=== PATIENT | female | born 1990 | race Caucasian/White ===

== ENCOUNTER 2018-01-09 07:29 | Emergency (ER) | payer SELFPAY ==
[2018-01-09 07:43] VITALS: BP 135/73
[2018-01-09] MEDS ORDERED: LORazepam TAB(*) 1 MG PO ONE (07:55)
--- NOTE | 2018-01-09 07:55 | UC ---
Back Pain HPI - HPI Summary HPI Summary: 27 yo WF h/o LBP, sciatica p/w severe intractable LBP, with radiculopathy associated with back spasms traveling up and down the back. Pain so excruciating she was unable to sleep or function - History of Current Complaint Chief Complaint: UCBackPain Stated Complaint: back and shoulder pain Time Seen by Provider: 01/09/18 07:49 Hx Obtained From: Patient Hx Last Menstrual Period: Onset/Duration: Sudden Onset Timing: Lasting Hours Severity Initially: Severe Severity Currently: Severe Pain Intensity: 9 Character: Sharp, Aching, Spasmodic Aggravating Factor(s): Movement - Allergies/Home Medications Allergies/Adverse Reactions: Allergies Allergy/AdvReac Type Severity Reaction Status Date / Time codeine Allergy Severe Vomiting Verified 01/09/18 07:49 NSAIDS (Non-Steroidal Allergy Severe Anaphylatic Verified 01/09/18 07:50 Anti-Inflamma Shock hydromorphone Allergy Mild Vomiting Verified 01/09/18 07:50 Home Medications: Home Medications Acetaminophen TAB* [Tylenol TAB*] 500 mg PO 01/09/18 [History] PMH/Surg Hx/FS Hx/Imm Hx - Additional Past Medical History Additional PMH: chronic LBP and sciatica Previously Healthy: Yes - Surgical History Surgical History: Yes Surgery Procedure, Year, and Place: GALL BLADDER - Social History Alcohol Use: Weekly Alcohol Amount: 2 DRINKS/WEEK Substance Use Type: Marijuana Smoking Status (MU): Heavy Every Day Tobacco Smoker Type: Cigarettes Amount Used/How Often: 1/2 ppd Length of Time of Smoking/Using Tobacco: 7 YEARS Have You Smoked in the Last Year: Yes Household Exposure Type: Cigarettes Review of Systems Constitutional: Negative Skin: Negative Eyes: Negative ENT: Negative Respiratory: Negative Cardiovascular: Negative Gastrointestinal: Negative Genitourinary: Negative Motor: Negative Neurovascular: Other - B/L SCIATICA Musculoskeletal: Other: - LBP and sciatica- intractable pains Neurological: Negative Psychological: Negative All Other Systems Reviewed And Are Negative: Yes Physical Exam Triage Information Reviewed: Yes Vital Signs: Initial Vital Signs Temp 36.4 C 01/09/18 07:37 Pulse 88 01/09/18 07:37 Resp 16 01/09/18 07:37 BP 135/73 01/09/18 07:37 Pulse Ox 100 01/09/18 07:37 Eye Exam: Normal ENT Exam: Normal Dental Exam: Normal Neck exam: Normal Neck: Positive: 1 Respiratory Exam: Normal Cardiovascular Exam: Normal Abdominal Exam: Normal Musculoskeletal Exam: Normal Musculoskeletal: Positive: Strength Limited @, ROM Limited @, Other: - radiculpathy down b/l LE, lumbar paraspinal tenderness associated with muscle spasm up to in between b/l scapula Neurological Exam: Normal Psychological: Positive: Consolable, Other: - tearful and anxious Skin Exam: Normal Back Pain Course/Dx - Course Course Of Treatment: anxiety improved with 1mg atvian PO, pt has intractable backpain, with severe back spasms. pt initially declined ambulance service and opted to call a friend for a ride to hospital but unsuccessful, hence ambulance called and pt transerred to ER. Discussed and informed of transfer to ED to Dr Neri - Differential Dx/Diagnosis Provider Diagnoses: intractable back pain. sciatica Discharge - Discharge Plan Condition: Stable Disposition: TRANS HIGHER LVL OF CARE FAC Referrals: No Primary Care Phys,NOPCP [Primary Care Provider] -
== END 2018-01-09 08:44 | disposition short-term general hospital (02) ==
LOC: UCEAST 07:29
DX: M54.40 Lumbago with sciatica, unspecified side (principal); F17.210 Nicotine dependence, cigarettes, uncomplicated; Z88.6 Allergy status to analgesic agent; Z88.5 Allergy status to narcotic agent
CPT/HCPCS: 99213; A9270-GY; G0463

== ENCOUNTER 2018-01-09 09:00 | Emergency (ER) | payer SELFPAY ==
--- NOTE | 2018-01-09 10:02 | ED ---
Back Pain - HPI Summary HPI Summary: 27 yo female presents to ED BIBA with h/o low back pain/sciatica today with severe intractable back pain, with radiculopathy associated with back spasms traveling up and down the back. Also sharp "burning" pain in back of both legs. Pain so excruciating she was unable to sleep or function. Sent over from for pain management. Had ativan at and seems to have helped her. Was taking tylenol at home with little relief. No other PMHx. Back issues due to scoliosis and back trauma. No bladder/bowel dysfunction. No current numbness/tingling however has been having intermittent episodes. No saddle anesthesia or weakness. Is able to walk and bear weight. Any kind of movement makes her pain worsen. No urinary complaints or symptoms. No nausea, vomiting, abdominal pain or fever/chills. No recent trauma or injury. No chest pain or trouble breathing. twisting, touch and movement makes pain worse. rest and position makes pain better. - History of Current Complaint Chief Complaint: EDBackInjuryPain Stated Complaint: BACK PAIN Time Seen by Provider: 01/09/18 09:24 Hx Obtained From: Patient Hx Last Menstrual Period: Onset/Duration: Sudden Onset, Lasting Days, Still Present, Worse Since Onset/Duration: Started Days Ago, Still Present, Worse Since - since last night Timing: Constant Back Pain Location: Is Discrete @ - left flank under shoulder blade, lateral thoracic side Severity Initially: Moderate Severity Currently: Severe Pain Intensity: 8 Pain Scale Used: 0-10 Numeric Character: Sharp, Burning Aggravating Symptom(s): Movement, Other - touch Alleviating Symptom(s): Rest, Position, Other - ativan given at Associated Signs And Symptoms: Positive: Negative, Tingling - resolved bl posterior legs. Negative: Swelling, Redness, Bruising, Weakness, Numbness, Bladder Incontinence, Bowel Incontinence, Weight Loss, Pain with Weight Bearing - Risk Factors AAA Risk Factors: Negative TAD Risk Factors: Negative Cauda Equina Risk Factors: Negative Epidural Abscess Risk Factors: Negative - Allergies/Home Medications Allergies/Adverse Reactions: Allergies Allergy/AdvReac Type Severity Reaction Status Date / Time codeine Allergy Severe Vomiting Verified 01/09/18 07:49 NSAIDS (Non-Steroidal Allergy Severe Anaphylatic Verified 01/09/18 07:50 Anti-Inflamma Shock hydromorphone Allergy Mild Vomiting Verified 01/09/18 07:50 PMH/Surg Hx/FS Hx/Imm Hx Endocrine/Hematology History: Denies: Hx Diabetes, Hx Thyroid Disease Cardiovascular History: Denies: Hx Hypertension Respiratory History: Reports: Hx Asthma - stress/exercise Denies: Hx Chronic Obstructive Pulmonary Disease (COPD) GI History: Denies: Hx Ulcer History: Reports: Other Problems/Disorders - Ovarian cysts Musculoskeletal History: Reports: Hx Back Problems, Hx Scoliosis, Other Musculoskeletal History - sciatica - Surgical History Surgery Procedure, Year, and Place: GALL BLADDER - Immunization History Immunizations Up to Date: Yes Infectious Disease History: No Infectious Disease History: Denies: Hx Hepatitis, Hx Human Immunodeficiency Virus (HIV), History Other Infectious Disease, Traveled Outside the [place] in Last 30 Days - Social History Alcohol Use: Weekly Alcohol Amount: 2 DRINKS/WEEK Substance Use Type: Reports: Marijuana Smoking Status (MU): Heavy Every Day Tobacco Smoker Type: Cigarettes Amount Used/How Often: 1/2 ppd Length of Time of Smoking/Using Tobacco: 7 YEARS Have You Smoked in the Last Year: Yes Review of Systems Constitutional: Negative Cardiovascular: Negative Respiratory: Negative Gastrointestinal: Negative Genitourinary: Negative Positive: Arthralgia, Myalgia Skin: Negative Neurological: Negative All Other Systems Reviewed And Are Negative: Yes Physical Exam Triage Information Reviewed: Yes Vital Signs On Initial Exam: Initial Vitals Temp Pulse Resp BP Pulse Ox 97.3 F 88 16 128/92 100 01/09/18 09:10 01/09/18 09:10 01/09/18 09:10 01/09/18 09:10 01/09/18 09:10 Vital Signs Reviewed: Yes Appearance: Positive: Well-Appearing, Well-Nourished, Pain Distress - mild/ moderate Skin: Positive: Warm, Skin Color Reflects Adequate Perfusion, Dry. Negative: Cold, Numb, Cyanosis @, Pale, Erythema @ Neck: Positive: Supple, Nontender Respiratory/Lung Sounds: Positive: Clear to Auscultation, Breath Sounds Present. Negative: Rales, Rhonchi, Wheezes Cardiovascular: Positive: Normal, RRR, Pulses are Symmetrical in both Upper and Lower Extremities. Negative: Murmur, Rub Abdomen Description: Positive: Nontender, No Organomegaly, Soft, CVA Tenderness (L) - due to same area as back pain. Negative: Bruit, CVA Tenderness (R), Distended, Guarding, McBurney's Point Tenderness, Peritoneal Signs, Pulsatile Mass Bowel Sounds: Positive: Present Musculoskeletal: Positive: Normal, Limited @ - with movement of back, twisting, due to pain, Pain @ - TTP T12-T9 left paraspinal muscle/lateral to spine Neurological: Positive: Normal, Sensory/Motor Intact, Alert, Oriented to Person Place, Time, CN Intact II-III, Reflexes Intact, NV Bundle Intact Distally, Normal Gait Diagnostics - Vital Signs Vital Signs Temp Pulse Resp BP Pulse Ox 01/09/18 09:10 97.3 F 88 16 128/92 100 - Laboratory Lab Statement: Any lab studies that have been ordered have been reviewed, and results considered in the medical decision making process. Re-Evaluation - Re-Evaluation First Eval Re-Evaluation Time: 11:00 Change: Improved - felt better, pain has improved 4/10 Back Pain Course/Dx - Course Course Of Treatment: given morphine for pain management. monitored after administration. also given zofran to prevent nausea. continue pain medication along with short course steroid to help with inflammation at home. heat/ice, rest. aware of worsening signs and symptoms to watch out for. follow up with pcp in 2 days. recommend physical therapy. no other concerns at this time.no new injury or trauma therefore imaging appear unnecessary at this time. - Diagnoses Differential Diagnosis/HQI/PQRI: Positive: Herniated Disc, Strain, Sprain, Other - sciatica, back pain, muscle spasm Provider Diagnoses: Sciatica, Back pain, Muscle spasm Discharge - Discharge Plan Condition: Improved Disposition: HOME Patient Education Materials: Sciatica (ED), Back Pain (ED), Muscle Spasm (ED) Referrals: [facility] [place] [facility] [Outside] Additional Instructions: Take prescribed medication to help with symptoms. Rest, ice, heat and massage. Recommend physical therapy. If symptoms worsen or new symptoms develop please seek medical attention like we discussed. Follow up with PCP in 2 days to ensure improvement.
[2018-01-09] MEDS ORDERED: Ondansetron ODT TAB* 4 MG PO ONE (10:10)
[2018-01-09] MEDS ORDERED: Morphine INJ* 4 MG/ML 1 ML SYRINGE (NEW SYRINGE VERSION) IM ONE (10:10)
[2018-01-09 11:34] VITALS: BP 107/71
== END 2018-01-09 11:33 | disposition home or self-care (01) ==
LOC: ED 09:00
DX: M54.40 Lumbago with sciatica, unspecified side (principal); M62.830 Muscle spasm of back; F17.210 Nicotine dependence, cigarettes, uncomplicated; Z88.6 Allergy status to analgesic agent; Z88.5 Allergy status to narcotic agent
CPT/HCPCS: 96372; 99282; A9270-GY; J2270

== ENCOUNTER 2018-08-25 07:08 | Emergency (ER) | payer BC ==
[2018-08-25] MEDS ORDERED: Acetaminophen TAB* 325 MG PO ONE (07:35)
[2018-08-25] MEDS ORDERED: Albuterol/Ipratropium NEB.SOL* Albuterol 2.5 MG/Ipratropium 0.5 MG 3 ML INH ONE (07:35)
--- NOTE | 2018-08-25 07:41 | ED ---
Throat Pain/Nasal Congestion - HPI Summary HPI Summary: 28 yr old female with complaint of sore throat, bilateral ear pain. Onset 2-3 days ago. She is also coughing and with nasal congestion. She states she breaths fast when nervous and does have some anxiety. She does not actually feel SOB or like she has asthma presently. - History of Current Complaint Chief Complaint: UCGeneralIllness Time Seen by Provider: 08/25/18 07:34 - Allergies/Home Medications Allergies/Adverse Reactions: Allergies Allergy/AdvReac Type Severity Reaction Status Date / Time codeine Allergy Severe Vomiting Verified 08/25/18 07:24 NSAIDS (Non-Steroidal Allergy Severe Anaphylatic Verified 08/25/18 07:24 Anti-Inflamma Shock hydromorphone Allergy Mild Vomiting Verified 08/25/18 07:24 PMH/Surg Hx/FS Hx/Imm Hx Endocrine/Hematology History: Denies: Hx Diabetes, Hx Thyroid Disease Cardiovascular History: Denies: Hx Hypertension Respiratory History: Reports: Hx Asthma - stress/exercise Denies: Hx Chronic Obstructive Pulmonary Disease (COPD) GI History: Denies: Hx Ulcer History: Reports: Other Problems/Disorders - Ovarian cysts Musculoskeletal History: Reports: Hx Back Problems, Hx Scoliosis, Other Musculoskeletal History - sciatica - Surgical History Surgery Procedure, Year, and Place: GALL BLADDER Infectious Disease History: No Infectious Disease History: Denies: Hx Hepatitis, Hx Human Immunodeficiency Virus (HIV), History Other Infectious Disease, Traveled Outside the [place] in Last 30 Days - Social History Alcohol Use: Occasionally Alcohol Amount: 2 DRINKS/WEEK Substance Use Type: Reports: Marijuana Smoking Status (MU): Heavy Every Day Tobacco Smoker Type: Cigarettes Amount Used/How Often: 1/2 ppd Length of Time of Smoking/Using Tobacco: 7 YEARS Have You Smoked in the Last Year: Yes Review of Systems Positive: Fatigue Positive: Sore Throat, Ear Ache Positive: Cough All Other Systems Reviewed And Are Negative: Yes Physical Exam Triage Information Reviewed: Yes Vital Signs On Initial Exam: Initial Vitals Temp Pulse Resp BP Pulse Ox 99.2 F 111 28 132/64 100 08/25/18 07:20 08/25/18 07:20 08/25/18 07:20 08/25/18 07:20 08/25/18 07:20 Vital Signs Reviewed: Yes Appearance: Positive: Well-Appearing, No Pain Distress Skin: Positive: Warm, Skin Color Reflects Adequate Perfusion Head/Face: Positive: Normal Head/Face Inspection Eyes: Positive: EOMI ENT: Positive: Pharyngeal erythema, Nasal congestion, TMs normal Respiratory/Lung Sounds: Positive: Clear to Auscultation, Breath Sounds Present Cardiovascular: Positive: RRR. Negative: Murmur Abdomen Description: Positive: Nontender Musculoskeletal: Positive: Strength/ROM Intact Neurological: Positive: Sensory/Motor Intact, Alert, Oriented to Person Place, Time, CN Intact II-III Psychiatric: Positive: Normal - Tanja Coma Scale Best Eye Response: 4 - Spontaneous Best Motor Response: 6 - Obeys Commands Best Verbal Response: 5 - Oriented Coma Scale Total: 15 Diagnostics - Vital Signs Vital Signs Temp Pulse Resp BP Pulse Ox 08/25/18 07:20 99.2 F 111 28 132/64 100 - Laboratory Lab Statement: Any lab studies that have been ordered have been reviewed, and results considered in the medical decision making process. - Radiology chest pa lat Radiology Interpretation Completed By: Radiologist - NAD EENT Course/Dx - Course Course Of Treatment: On reevaluation the patient is more comfortable, Respirations and HR down. No distress. Xray neg for peumonia but with some interstitial markings. Will Rx with zpack. - Diagnoses Provider Diagnoses: Mycoplasma pneumonia Discharge - Sign-Out/Discharge Documenting (check all that apply): Patient Departure All imaging exams completed and their final reports reviewed: Yes - Discharge Plan Condition: Good Disposition: HOME Prescriptions: Azithromycin TAB* [Zithromax TAB (Z-ERNESTO) 250 mg #6 tabs] 2 tab PO .TODAY, THEN 1 DAILY #1 ernesto Patient Education Materials: Pneumonia (ED) Referrals: No Primary Care Phys,NOPCP [Primary Care Provider] - [facility] [place] [facility] [Outside] - Billing Disposition and Condition Condition: GOOD Disposition: Home
--- NOTE | 2018-08-25 08:17 | RAD ---
INDICATION: Shortness of breath, cough 3 days duration. History of tobacco use. COMPARISON: September 07, 2006.June 14, 2015 CT abdomen. TECHNIQUE: Dual energy PA and routine lateral views of the chest were obtained. REPORT: Mildly elevated lung volumes. Mild prominence of the interstitial markings. No focal pulmonary lesion, compelling alveolar consolidation, pleural effusion, pneumothorax. The heart, pulmonary vasculature, and mediastinal contours are unremarkable. IMPRESSION: #. Stigmata of probable obstructive lung disease. No acute pulmonary or cardiac process evident.
[2018-08-25 08:25] VITALS: BP 114/75
== END 2018-08-25 08:40 | disposition home or self-care (01) ==
LOC: UCCORT 07:08
DX: J15.7 Pneumonia due to Mycoplasma pneumoniae (principal); Z88.6 Allergy status to analgesic agent; Z88.5 Allergy status to narcotic agent
CPT/HCPCS: 71046; 87651; 99212; G0463

== ENCOUNTER 2019-08-21 22:59 | Emergency (ER) | payer OTHER ==
[2019-08-22 00:14] VITALS: BP 113/73
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
[2019-08-22] MEDS ORDERED: Acetaminophen TAB* 325 MG PO ONE (00:58)
[2019-08-22] MEDS ORDERED: Azithromycin TAB* 250 MG PO ONE (02:29)
[2019-08-22] MEDS ORDERED: Tenofovir/Emtricitab 200/300 * TAB PO ONE ×2 (02:29→03:00)
[2019-08-22] MEDS ORDERED: cefTRIAXone VIAL(*) 250 MG VIAL IM ONE (02:29)
[2019-08-22] MEDS ORDERED: Raltegravir* 400 MG TAB PO ONE ×2 (02:29→03:00)
[2019-08-22] MEDS ORDERED: Levonorgestrel 1.5 MG TAB PO ONE (02:29)
[2019-08-22] MEDS ORDERED: Sterile Water for Inj* 10 ML ONE ×2 (02:38→02:48)
[2019-08-22] MEDS ORDERED: Ondansetron ODT TAB* 4 MG PO ONE (02:40)
[2019-08-22 02:49] LABS: ABS Basophils 0.1 10^3/ul (0-0.2); ABS Lymphocytes 2.2 10^3/ul (1.0-4.8); ABS Monocytes 0.8 10^3/ul (0-0.8); ABS Neutrophils 8.3 10^3/ul (1.5-7.7); Eosinophil % 0.4 %; Hematocrit 40 % (35-47); Hemoglobin 13.9 g/dL (12.0-16.0); Mean Corpuscular HGB Conc 34 g/dL (31-36); Mean Corpuscular Hemoglobin 32 pg (27-31); Mean Corpuscular Volume 92 fL (80-97); Mean Platelet Volume 6.5 fL (7.4-10.4); Nucleated Red Blood Cells % 0.1; Platelet Count 327 10^3/uL (150-450); Red Blood Count 4.36 10^6 /uL (3.70-4.87); Red Cell Distribution Width 13 % (10-15); White Blood Count 11.4 10^3/uL (3.5-10.8)
[2019-08-22 03:07] LABS: ALT 25 U/L (7-52); AST 24 U/L (13-39); Albumin 4.2 g/dL (3.2-5.2); Albumin/Globulin Ratio 1.9 (1-3); Alkaline Phosphatase 58 U/L (34-104); Anion Gap 6 mmol/L (2-11); Blood Urea Nitrogen 12 mg/dL (6-24); CO2 Carbon Dioxide 23 mmol/L (22-32); Calcium 9.3 mg/dL (8.6-10.3); Chloride 108 mmol/L (101-111); Globulin 2.2 g/dL (2-4); Glucose 103 mg/dL (70-100); Potassium 3.6 mmol/L (3.5-5.0); Sodium 137 mmol/L (135-145); Total Protein 6.4 g/dL (6.4-8.9)
[2019-08-22 03:13] LABS: HCG Pregnancy < 0.60 mIU/mL
[2019-08-22 03:41] LABS: HIV 4th Generation Nonreactive (Nonreactive)
[2019-08-22 03:49] LABS: Hepatitis B Surface Antigen Nonreactive (Nonreactive)
[2019-08-22 04:06] LABS: Hepatitis C Antibody Negative (Negative)
[2019-08-22 04:46] LABS: Urine Appearance Clear; Urine Bilirubin Negative (Negative); Urine Blood Negative (Negative); Urine Color Straw; Urine Glucose Negative (Negative); Urine Ketones 1+ (Negative); Urine Nitrite Negative (Negative); Urine Protein Negative (Negative); Urine Specific Gravity 1.005 (1.010-1.030); Urine Urobilinogen Negative (Negative)
== END 2019-08-22 04:17 | disposition home or self-care (01) ==
LOC: ED 22:59
DX: T74.21XA Adult sexual abuse, confirmed, initial encounter (principal); Z88.6 Allergy status to analgesic agent; Z88.5 Allergy status to narcotic agent; F17.210 Nicotine dependence, cigarettes, uncomplicated
CPT/HCPCS: 36415; 80053; 81003; 84702; 85025; 86803; 87340; 87389; 96372; 99284; A9270-GY; J0696

== ENCOUNTER 2019-08-26 12:26 | Emergency (ER) | payer SELFPAY ==
[2019-08-26 13:07] VITALS: BP 119/71
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
== END 2019-08-26 13:22 | disposition home or self-care (01) ==
LOC: UCEAST 12:26
DX: F43.0 Acute stress reaction (principal); F41.1 Generalized anxiety disorder; R11.2 Nausea with vomiting, unspecified; R10.9 Unspecified abdominal pain; T50.905A Adverse effect of unspecified drugs, medicaments and biological substances, initial encounter; F17.210 Nicotine dependence, cigarettes, uncomplicated; Z88.5 Allergy status to narcotic agent; Z88.8 Allergy status to other drugs, medicaments and biological substances; Y92.9 Unspecified place or not applicable
CPT/HCPCS: 99212; G0463